=== PATIENT | female | born 1940 | race Hispanic/Latino ===

== ENCOUNTER 2018-10-02 09:09 | Outpatient (CLI) | payer MEDICARE, MEDICAID ==
--- NOTE | 2018-10-02 11:18 | RAD ---
LEFT HIP 2 VIEWS: HISTORY: M25.552, hip pain. COMPARISON: None. 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 Mild degenerative change of the pubic symphysis. The left obturator ring is intact. IMPRESSION: No acute fracture or malalignment. POS: [facility]
== END 2018-10-02 09:10 | disposition home or self-care (01) ==
LOC: SCSRAD 09:09
PROVIDERS: ATTEND Family Medicine
DX: M25.552 Pain in left hip (principal)